=== PATIENT | female | born 1950 | race Caucasian/White ===

== ENCOUNTER → 2016-07-24 | Outpatient (CLI) | payer BC ==
[~2016-07-24] MED LIST: CHOL100010 PO; HYDR-5688 PO; LEVO75TA5 PO; PRLSR20 PO
[2016-07-24 10:50] LABS: ALT/SGPT 31 U/L (12-78); AST/SGOT 17 U/L (15-37); BLOOD UREA NITROGEN 11 mg/dl (7-18); BUN/CREATININE RATIO 14.3 (10-20); CALCIUM 8.8 mg/dl (8.5-10.1); CHLORIDE 107 mmol/L (98-107); CREATININE 0.79 mg/dl (0.60-1.20); GLUCOSE 87 mg/dl (70-99); SODIUM 141 mmol/L (136-145)
[2016-07-24 10:53] LABS: ALKALINE PHOSPHATASE 104 U/L (45-117); CHOLESTEROL 187 mg/dl (0-200); CHOLESTEROL/HDL RATIO 3.4; HDL CHOLESTEROL 55 mg/dl; LDL CHOLESTEROL CALCULATED 115 mg/dl; VERY LOW DENSITY LIPOPROT CALC 17 mg/dl
[2016-07-24 11:06] LABS: ALB/GLOB RATIO 0.9 (0.9-2); CARBON DIOXIDE 26 mmol/L (21-32); TRIGLYCERIDES 83 mg/dl (0-150)
== END | disposition home or self-care (01) ==
LOC: C.LAB1850 09:12
PROVIDERS: ATTEND Internal Medicine
DX: E55.9 Vitamin D deficiency, unspecified (principal); E78.00 Pure hypercholesterolemia, unspecified

== ENCOUNTER → 2016-07-30 | Outpatient (CLI) | payer BC | END | disposition home or self-care (01) | LOC: C.RDSM 15:45 | PROVIDERS: ATTEND Orthopaedic Surgery Sports Medicine | DX: Z09 Encounter for follow-up examination after completed treatment for conditions other than malignant neoplasm (principal) ==

== ENCOUNTER → 2017-01-06 | Outpatient (CLI) | payer BC ==
--- NOTE | 2017-01-07 07:40 | MAMMOGRAPHY REPORT ---
BILATERAL DIGITAL SCREENING MAMMOGRAM WITH CAD: 01/06/2017 CLINICAL HISTORY: Routine screening. Patient has no complaints. TECHNIQUE: Bilateral CC, MLO and repeat left CC view with the nipple in profile were obtained. Curre nt study was also evaluated with a Computer Aided Detection (CAD) system. COMPARISON: Comparison is made to exams dated: 01/04/2016 mammogram, 01/02/2015 mammogram, 12/27/2013 ma mmogram, 12/23/2012 mammogram, 12/23/2011 mammogram, and 12/19/2010 mammogram - [facility]. BREAST COMPOSITION: The tissue of both breasts is heterogeneously dense, which may obscure small mas ses. FINDINGS: There is an asymmetry in the upper outer posterior left breast, for which additional spot compression tomosynthesis views and possible ultrasound are recommended, although this could represen t overlapping fibroglandular tissue. No other suspicious mass, architectural distortion or cluster of microcalcifications is seen bilatera lly. IMPRESSION: ACR BI-RADS CATEGORY 0: INCOMPLETE EVALUATION: NEED ADDITIONAL IMAGING EVALUATION The asymmetry in the upper outer posterior left breast needs additional evaluation. The patient will be called to schedule an appointment. Approximately 10% of breast cancers are not detected with mammography. A negative mammographic report should not delay biopsy if a clinically suggestive mass is present. Paula Kowalski M.D. ay/:01/06/2017 16:58:25 Telemarketer: Nadiya CROFT(Kennedi)(Joanna)([place]), [facility] letter sent: [facility] 0 BI-RADS Code: ACR BI-RADS Category 0: Incomplete Evaluation: Need Additional Imaging Evaluation
== END | disposition home or self-care (01) ==
LOC: C.MAMM 10:42
PROVIDERS: ATTEND Obstetrics & Gynecology
DX: Z12.31 Encounter for screening mammogram for malignant neoplasm of breast (principal); R92.8 Other abnormal and inconclusive findings on diagnostic imaging of breast

== ENCOUNTER → 2017-01-20 | Outpatient (CLI) | payer BC ==
--- NOTE | 2017-01-20 14:05 | MAMMOGRAPHY REPORT ---
UNILATERAL LEFT DIGITAL DIAGNOSTIC MAMMOGRAM TOMOSYNTHESIS AND TARGETED LEFT ULTRASOUND: 01/20/2017 CLINICAL HISTORY: 66-year-old woman called back from screening mammography for nodular asymmetries in the upper outer posterior left breast. TECHNIQUE: Spot compression left CC and MLO 2-D and tomosynthesis images were obtained. COMPARISON: Comparison is made to exams dated: 01/06/2017 mammogram, 01/04/2016 mammogram, 01/02/2015 m ammogram, 12/27/2013 mammogram, 12/23/2012 mammogram, and 12/23/2011 mammogram - [facility]. BREAST COMPOSITION: There are scattered areas of fibroglandular density in the left breast. FINDINGS: The supplemental spot compression left MLO view including tomosynthesis images demonstrates effacement of the nodular asymmetries in the superior, posterior aspect of the breast. No focal are a of architectural distortion is identified. On the spot compression left CC view and corresponding tomosynthesis images, there is persistence of at least one circumscribed lobulated mass measuring 2.6 x 5.6 mm. No associated architectural distortion or microcalcification. No other definite masses i dentified in the lateral left breast. Targeted ultrasound was performed at the lateral left breast. In the 3:00 axis, 2 cm from the nipple , there is a circumscribed parallel anechoic benign simple cyst measuring 3.9 x 2.2 x 4.2 mm. There is a small lobulation along one side corresponding in shape to the mammographic mass and the size debbi surements are the same as well. This is benign. A few other smaller cysts are identified in the lef t breast in the 1:00 and 2:00 axes. No suspicious solid mass is seen. IMPRESSION: ACR BI-RADS CATEGORY 2: BENIGN, TARGETED ULTRASOUND ACR BI-RADS CATEGORY 2: BENIGN A persistent circumscribed 4 mm mass in the lateral posterior left breast correlates with a benign an echoic simple cyst on ultrasound. A few other smaller anechoic cysts versus focal duct ectasia are s een in the lateral left breast on ultrasound. There is no mammographic or targeted sonographic evide nce of malignancy. Return to annual mammogram screening schedule is recommended. The patient has bee n verbally notified of the results. Approximately 10% of breast cancers are not detected with mammography. A negative mammographic report should not delay biopsy if a clinically suggestive mass is present. Paula Kowalski M.D. ay/:01/20/2017 11:22:58 Sign Designer: Preeti Wood, [facility] letter sent: Normal 1/2 BI-RADS Code: ACR BI-RADS Category 2: Benign Ultrasound BI-RADS: ACR BI-RADS Category 2: Benign
== END | disposition home or self-care (01) ==
LOC: C.MAMM 10:55
PROVIDERS: ATTEND Obstetrics & Gynecology
DX: N64.89 Other specified disorders of breast (principal); N63 Unspecified lump in breast

== ENCOUNTER → 2017-02-21 | Outpatient (CLI) | payer OTHER ==
[2017-02-21 13:54] LABS: ALKALINE PHOSPHATASE 100 U/L (45-117); ALT/SGPT 24 U/L (12-78); AST/SGOT 22 U/L (15-37); BLOOD UREA NITROGEN 11 mg/dl (7-18); BUN/CREATININE RATIO 15.1 (10-20); CALCIUM 8.9 mg/dl (8.5-10.1); CARBON DIOXIDE 27 mmol/L (21-32); CHLORIDE 103 mmol/L (98-107); CHOLESTEROL 187 mg/dl (0-200); CHOLESTEROL/HDL RATIO 4.3; CREATININE 0.75 mg/dl (0.60-1.20); GLUCOSE 91 mg/dl (70-99); HDL CHOLESTEROL 43 mg/dl; LDL CHOLESTEROL CALCULATED 123 mg/dl; POTASSIUM 3.8 mmol/L (3.5-5.1); SODIUM 137 mmol/L (136-145); TRIGLYCERIDES 103 mg/dl (0-150); VERY LOW DENSITY LIPOPROT CALC 21 mg/dl
== END | disposition home or self-care (01) ==
LOC: C.LABMFLN 08:40
PROVIDERS: ATTEND Internal Medicine
DX: Z00.00 Encounter for general adult medical examination without abnormal findings (principal); Z11.59 Encounter for screening for other viral diseases; E03.9 Hypothyroidism, unspecified; E55.9 Vitamin D deficiency, unspecified

== ENCOUNTER → 2017-09-25 | Outpatient (CLI) | payer OTHER ==
[2017-09-25 12:34] LABS: ALBUMIN 3.6 gm/dl (3.4-5.0); ALT/SGPT 26 U/L (12-78); BLOOD UREA NITROGEN 11 mg/dl (7-18); CALCIUM 8.7 mg/dl (8.5-10.1); CARBON DIOXIDE 27 mmol/L (21-32); CREATININE 0.78 mg/dl (0.60-1.20); GLUCOSE 93 mg/dl (70-99); POTASSIUM 3.9 mmol/L (3.5-5.1); SODIUM 140 mmol/L (136-145)
[2017-09-25 12:37] LABS: ALKALINE PHOSPHATASE 93 U/L (45-117); AST/SGOT 19 U/L (15-37)
== END | disposition home or self-care (01) ==
LOC: C.LAB1850 10:53
PROVIDERS: ATTEND Internal Medicine
DX: E78.00 Pure hypercholesterolemia, unspecified (principal); E55.9 Vitamin D deficiency, unspecified

== ENCOUNTER → 2017-10-23 | Outpatient (CLI) | payer OTHER | END | disposition home or self-care (01) | LOC: C.MAMM 10:15 | PROVIDERS: ATTEND Internal Medicine | DX: M85.80 Other specified disorders of bone density and structure, unspecified site (principal); E55.9 Vitamin D deficiency, unspecified; M19.041 Primary osteoarthritis, right hand ==